=== PATIENT | male | born 2000 | race African-American/Black ===

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

== ENCOUNTER 2019-03-18 17:28 | Emergency (ER) | payer OTHER | END 2019-03-18 19:34 | disposition home or self-care (01) | LOC: JERFT 17:28 ==

== ENCOUNTER 2020-02-22 20:04 | Emergency (ER) | payer OTHER ==
[2020-02-22 20:20] VITALS: BMI 21.2
[2020-02-22] MEDS ORDERED: KETAMINE HCL 500 MG/10 ML VIAL IM ONE (22:31)
[2020-02-22] MEDS ORDERED: ONDANSETRON *ODT* 4 MG TABLET SL ONE (22:34)
[2020-02-22] MEDS ORDERED: KETAMINE HCL 500 MG/10 ML VIAL ONE (22:36)
[2020-02-22] MEDS ORDERED: DIPHTH,PERTUSS(ACELL),TET 0.5 ML DISP.SYRIN IM ONE ×2 (23:03→23:04)
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
[2020-02-23 00:46] VITALS: BP 121/80; PULSE 86
[2020-02-23] MEDS ORDERED: ONDANSETRON *ODT* 4 MG TABLET ONE (00:49)
== END 2020-02-23 01:39 | disposition home or self-care (01) ==
LOC: JER 20:04
PROC: 3E023GC Introduction of Other Therapeutic Substance into Muscle, Percutaneous Approach (ICD-10-PCS; principal; 2020-02-22)
PROC: 3E0234Z Introduction of Serum, Toxoid and Vaccine into Muscle, Percutaneous Approach (ICD-10-PCS; principal; 2020-02-22)
DX: S61.451A Open bite of right hand, initial encounter (principal); W50.3XXA Accidental bite by another person, initial encounter
CPT/HCPCS: 90715; 99284-25